=== PATIENT | female | born 1980 | race African-American/Black ===

== ENCOUNTER 2018-07-19 12:18 | Emergency (ER) | payer MEDICAID, OTHER ==
[~2018-07-19] VITALS: Ht 152.4 cm; Wt 99.0 kg
[2018-07-19 12:22] VITALS: BP 139/78
== END 2018-07-19 15:00 | disposition home or self-care (01) ==
LOC: ER 14:03
DX: J06.9 Acute upper respiratory infection, unspecified (principal); I10 Essential (primary) hypertension; J45.909 Unspecified asthma, uncomplicated; Z90.49 Acquired absence of other specified parts of digestive tract; Z88.2 Allergy status to sulfonamides
CPT/HCPCS: 99283